=== PATIENT | male | born 1985 | race Caucasian/White ===

== ENCOUNTER 2019-01-01 10:57 | Emergency (ER) | payer MEDICAID ==
[~2019-01-01] VITALS: Wt 91.0 kg
[2019-01-01 11:00] VITALS: BP 138/62; PULSE 81; RESP 18
[2019-01-01] MEDS ORDERED: IBUP-1542 PO (12:39)
[2019-01-01] MEDS ORDERED: D-ME473S2 PO (12:39)
[2019-01-01] MEDS ORDERED: AZIT250T PO (12:39)
--- NOTE | 2019-01-01 12:44 | ERD ---
ER Documentation Chief Complaint Chief Complaint SORE THROAT X 1 WEEK HPI 33-year-old male presents with productive cough for last week. May have had fevers at home. He also has red eyes with slight discharge. Denies any pain, visual changes. Denies any chest pain, vomiting, abdominal pain. Sore throat as well. ROS All systems reviewed and are negative except as per history of present illness. Medications Home Meds Active Scripts Dextromethorphan Hb-Promethazine Hcl* (Promethazine DM* Syrup) 473 Ml Syrup, 5 ML PO Q6 PRN for COUGH for 5 Days, ML Prov:OMID KOELHER MD 01/01/19 Ibuprofen* (Motrin*) 600 Mg Tab, 600 MG PO Q6, #15 TAB Prov:OMID KOEHLER MD 01/01/19 Azithromycin* (Zithromax*) 250 Mg Tablet, 250 MG PO .ZPACK DIRECTED, #6 TAB TAKE 500 MG (2 TABS) THE FIRST DAY THEN 250 MG (1 TAB) DAYS 2-5 Prov:OMID KOEHLER MD 01/01/19 PMhx/Soc Medical and Surgical Hx: pt denies Medical Hx, pt denies Surgical Hx Hx Alcohol Use: No Hx Substance Use: No Hx Tobacco Use: No Smoking Status: Never smoker FmHx Family History: No diabetes, No coronary disease, No other Physical Exam Vitals Vital Signs Date Temp Pulse Resp B/P (MAP) Pulse Ox O2 O2 Flow FiO2 Time Delivery Rate 01/01/19 98.1 81 18 138/62 99 11:00 (87) Physical Exam Const: No acute distress Head: Atraumatic Eyes: Sclera with bilateral redness without discharge. No proptosis, orbital swelling. ENT: Normal External Ears, Nose and Mouth. TMs normal. Postnasal drip. Neck: Full range of motion. No meningismus. Resp: Clear to auscultation bilaterally coarse cough without rales, wheezing or retractions. Cardio: Regular rate and rhythm, no murmurs Abd: Soft, non tender, non distended. Normal bowel sounds Skin: No petechiae or rashes Back: No midline or flank tenderness Ext: No cyanosis, or edema Neur: Awake and alert Psych: Normal Mood and Affect Procedures/MDM Patient presents with URI symptoms, red eyes for the last week. He may have viral URI viral syndrome but given the duration and patient request we will treat with Zithromax, promethazine, ibuprofen, wound care follow-up and return precautions. He has no signs of pneumonia, rest or distress, hypoxemia, additional identifiable emergent causes of presenting complaints. The patient was stable with no new complaints during the ER course. Clinically, there is no current evidence to suggest meningitis, sepsis, acute abdomen, pneumonia, stroke, acute coronary syndrome, pulmonary embolism, aortic dissection or any other emergent condition appearing to require further evaluation or hospitalization. Patient counseled regarding my diagnostic impression and care plan. Prior to discharge all questions answered. Pt agrees with treatment plan and understands strict return precautions. Pt is instructed to follow up with primary care provider within 24-48 hours. Precautionary instructions provided including instructions to return to the ER if not improving or for any worsening or changing symptoms or concerns. Departure Diagnosis: Primary Impression: Sore throat Condition: Stable Patient Instructions: Bronchitis, Antiobiotic Treatment (Adult) [facility] Usted se andrade hecho un examen mdico de control que le indica que no est en maurizio condicin que requiera tratamiento urgente en el Departamento de Emergencia. Un estudio ms profundo y el tratamiento de mar condicin pueden esperar sin ningn riesgo hasta que usted sea atendida/o en el consultorio de mar mdico o maurizio clnica. Es responsabilidad suya arreglar maurizio alberto para el seguimiento del yareli. MANEJO DE CONDICIONES NO URGENTES EN EL FUTURO 1) Si usted tiene un mdico de atencin primaria: Usted debera llamar a mar mdico de atencin primaria antes de venir al departamento de emergencia. Despus de las horas de consultorio, mar doctor o mar asociado/a est disponible por telfono. El mdico o enfermero de fer en el servicio telefnico puede asesorarle por ana medio para atender el problema, o yareli contrario se puede programar maurizio alberto. 2) Si usted no tiene un mdico de atencin primaria: Llame al mdico o clnica de referencia que aparece abajo juan las horas de consultorio para hacer maurizio alberto para que le vean. CLINICAS: [facility] [phone] [facility] [phone] [facility] [phone] [place] [phone] [place] [address] [phone] [facility]. [phone] [address] Additional Instructions: vamos a tratar para infeccion handy probablamente un virus que dura 2-4 campbell. cheque otro vez en el proximo kal para mas simptomas- vomito, dolor, mariaa, problemas con respirando, o con mar doctor primario. OMID KOEHLER MD Jan 01, 2019 12:44
== END 2019-01-01 13:15 | disposition home or self-care (01) ==
LOC: FTE 10:57
DX: J02.9 Acute pharyngitis, unspecified (principal)
CPT/HCPCS: 99283